=== PATIENT | female | born 1955 | race Caucasian/White ===

== ENCOUNTER → 2016-06-13 | Outpatient (CLI) | payer OTHER ==
--- NOTE | 2016-06-16 10:47 | RSPPFT ---
DATE OF PROCEDURE: 06/13/16 COMMENTS: The forced vital capacity, FEV1, FEV1/FVC ratio are all normal. There is no improvement after bronchodilator. The FEF 25-75 is borderline normal. IMPRESSION: This is compatible with a normal pulmonary function study. The flow volume loop is normal.
== END ==
LOC: PHRSP 07:31
PROVIDERS: ATTEND Family Medicine
DX: R06.02 Shortness of breath (principal); J44.9 Chronic obstructive pulmonary disease, unspecified
CPT/HCPCS: 94060